=== PATIENT | female | born 1960 | race Two or more races ===

== ENCOUNTER 2024-10-28 00:21 | Inpatient (IN) | payer OTHER, MEDICAID ==
[~2024-10-28] VITALS: Ht 165.1 cm; Wt 74.0 kg
[2024-10-28 00:54] LABS: BASOPHILS % (AUTO) 1.3 % (0.0-2.0); EOSINOPHILS % (AUTO) 4.5 % (1.0-6.0); HEMATOCRIT 42.6 % (36-46); LYMPHOCYTES # (AUTO) 2.3 K/uL (1.0-4.8); MEAN CORPUSCULAR HEMOGLOBIN 26.8 pg (26.0-34.0); MEAN CORPUSCULAR HGB CONC 32.8 G/dL (31.0-37.0); MEAN CORPUSCULAR VOLUME 82 fL (80-100); MONOCYTES # (AUTO) 0.5 K/uL (0.1-1.0); MONOCYTES % (AUTO) 8.8 % (2.0-9.0); NEUTROPHILS # (AUTO) 2.9 K/uL (1.8-7.7); NEUTROPHILS % (AUTO) 47.4 % (40.0-70.0); PLATELET COUNT (AUTO) 205 K/uL (150-450); RED BLOOD CELL COUNT(AUTO) 5.21 MIL/uL (4.00-5.20); WHITE BLOOD COUNT (AUTO) 6.1 K/uL (4.5-11.0)
[2024-10-28] MEDS: DILTIAZEM HCL 5 MG/ML 5 ML VIAL IVP ONE ×2 (00:54→01:21)
[2024-10-28 01:06] LABS: ANION GAP 5 mmol/L (8-16); CALCIUM, TOTAL 9.1 mg/dL (8.8-10.5); CARBON DIOXIDE 32 mmol/L (22-29); CHLORIDE 105 mmol/L (98-107); CREATININE 0.71 mg/dL (0.60-1.30); GLOMERULAR FILTR. RATE CALC > 60 mL/min (>60); GLUCOSE,RANDOM 118 mg/dL (70-110); POTASSIUM 3.7 mmol/L (3.5-5.1); SODIUM SERUM 142 mmol/L (136-145); UREA NITROGEN, BLOOD 20 mg/dL (7-18)
[2024-10-28 01:08] LABS: APPEARANCE,URINE CLEAR (CLEAR); BILIRUBIN,URINE NEGATIVE (NEGATIVE); COLOR,URINE COLORLESS (YELLOW); GLUCOSE, URINE (UA) NEGATIVE (NEGATIVE); KETONES,URINE NEGATIVE (NEGATIVE); LEUKOCYTE ESTERASE ,URINE NEGATIVE (NEGATIVE); NITRATE,URINE NEGATIVE (NEGATIVE); OCCULT BLOOD,URINE NEGATIVE (NEGATIVE); PH,URINE 6.5 (5.0-8.0); PROTEIN,URINE NEGATIVE (NEGATIVE); SPECIFIC GRAVITIY, URINE 1.006 (1.003-1.030); UROBILINOGEN,URINE <=1.0 mg/dL (<=1.0)
[2024-10-28 01:09] LABS: PROTHROMBIN TIME 9.8 SEC (9.4-11.6)
[2024-10-28 01:10] LABS: ALBUMIN 3.5 g/dL (3.4-5.0); BILIRUBIN,DIRECT 0.1 mg/dL (0.00-0.20); BILIRUBIN,TOTAL 0.2 mg/dL (0.1-1.0); TOTAL PROTEIN, SERUM 7.4 g/dL (6.4-8.2); TROPONIN I-HIGH SENSITIVITY 18 ng/L (<51)
[2024-10-28] MEDS: DEXTROSE 5% IV PRN (01:22)
[2024-10-28] MEDS: WATER IV PRN (01:22)
[2024-10-28] MEDS: DILTIAZEM HCL IV PRN (01:22)
[2024-10-28] MEDS: METOPROLOL TARTRATE 5 MG/5 ML VIAL IVP ONE ×3 (03:08→07:16)
[2024-10-28 08:07] LABS: TROPONIN I-HIGH SENSITIVITY 34 ng/L (<51)
[2024-10-28] MEDS: DILTIAZEM HCL 60 MG SR CAPSULE PO SCH (08:49)
[2024-10-28] MEDS: ASPIRIN 81 MG DR TABLET PO SCH (09:26)
[2024-10-28 12:00] VITALS: BP 112/59; PULSE 54; RESP 14; TEMP 98.1; O2SAT 99
[2024-10-28 16:30] VITALS: BP 121/62; PULSE 65; RESP 16; TEMP 98.1; O2SAT 98
[2024-10-28] MEDS ORDERED: BISACODYL 10 MG RECTAL RECTAL SUPPOSITORY PR PRN (17:45)
[2024-10-28] MEDS ORDERED: ACETAMINOPHEN 325 MG TABLET PO PRN (17:45)
[2024-10-28] MEDS ORDERED: OxyCODONE HCL/ACETAMINOPHEN 5-325 MG TABLET PO PRN (17:45)
[2024-10-28] MEDS ORDERED: MORPHINE SULFATE 2 MG/ML SYRINGE IVP PRN (17:45)
[2024-10-28] MEDS ORDERED: ZOLPIDEM TARTRATE 5 MG TABLET PO PRN (17:45)
[2024-10-28] MEDS ORDERED: ONDANSETRON HCL 4 MG/2 ML VIAL IVP PRN (17:45)
[2024-10-28] MEDS ORDERED: ALBUTEROL SULFATE 2.5 MG/0.5 ML NEB SOLUTION NEB PRN (17:45)
[2024-10-28] MEDS ORDERED: IPRATROPIUM BROMIDE 0.5 MG/2.5 ML NEB SOLUTION NEB PRN (17:45)
[2024-10-28] MEDS ORDERED: MAGNESIUM HYDROXIDE SUSPENSION 30 ML UDCUP PO PRN (17:45)
[2024-10-28 19:31] VITALS: BP 116/53; PULSE 63; RESP 17; TEMP 97.9; O2SAT 98
[2024-10-29 00:25] VITALS: BP 109/57; PULSE 57; RESP 17; TEMP 98.4; O2SAT 99
[2024-10-29] MEDS: HEPARIN SODIUM,PORCINE 5,000 UNITS/ML VIAL SQ SCH (00:25)
[2024-10-29 06:00] VITALS: BP 121/57; PULSE 59; RESP 16; TEMP 98.1; O2SAT 99
[2024-10-29 06:48] LABS: BASOPHILS % (AUTO) 1.2 % (0.0-2.0); EOSINOPHILS % (AUTO) 3.5 % (1.0-6.0); HEMATOCRIT 41.9 % (36-46); HEMOGLOBIN 13.9 g/dL (12.0-16.0); LYMPHOCYTES # (AUTO) 2.1 K/uL (1.0-4.8); LYMPHOCYTES % (AUTO) 38.1 % (22.0-44.0); MEAN CORPUSCULAR HEMOGLOBIN 27.2 pg (26.0-34.0); MEAN CORPUSCULAR HGB CONC 33.2 G/dL (31.0-37.0); MEAN CORPUSCULAR VOLUME 82 fL (80-100); MONOCYTES # (AUTO) 0.5 K/uL (0.1-1.0); MONOCYTES % (AUTO) 9.3 % (2.0-9.0); NEUTROPHILS # (AUTO) 2.7 K/uL (1.8-7.7); NEUTROPHILS % (AUTO) 47.9 % (40.0-70.0); PLATELET COUNT (AUTO) 216 K/uL (150-450); RED BLOOD CELL COUNT(AUTO) 5.11 MIL/uL (4.00-5.20); RED CELL DISTRIBUTION WIDTH 15.3 % (11.5-14.5); WHITE BLOOD COUNT (AUTO) 5.6 K/uL (4.5-11.0)
[2024-10-29 07:01] LABS: ALANINE AMINOTRANSFERASE 17 U/L (12-78); ALBUMIN 3.2 g/dL (3.4-5.0); ALKALINE PHOSPHATASE 70 U/L (46-116); ANION GAP 5 mmol/L (8-16); ASPARTATE AMINOTRANSFERASE 11 U/L (15-37); BILIRUBIN,TOTAL 0.4 mg/dL (0.1-1.0); CALCIUM, TOTAL 8.9 mg/dL (8.8-10.5); CARBON DIOXIDE 29 mmol/L (22-29); CHLORIDE 105 mmol/L (98-107); GLOMERULAR FILTR. RATE CALC > 60 mL/min (>60); GLUCOSE,RANDOM 101 mg/dL (70-110); POTASSIUM 4.2 mmol/L (3.5-5.1); SODIUM SERUM 139 mmol/L (136-145); TOTAL PROTEIN, SERUM 6.9 g/dL (6.4-8.2); UREA NITROGEN, BLOOD 18 mg/dL (7-18)
[2024-10-29 07:14] LABS: TROPONIN I-HIGH SENSITIVITY 21 ng/L (<51)
[2024-10-29 09:00] VITALS: BP 133/76; PULSE 66; RESP 18; TEMP 97.9; O2SAT 99
[2024-10-29] MEDS: DOCUSATE SODIUM 100 MG/10 ML LIQUID UDCUP PO SCH (09:00)
[2024-10-29] MEDS: PANTOPRAZOLE SODIUM 40 MG/VIAL IVP SCH (09:03)
[2024-10-29 12:45] VITALS: BP 106/56; PULSE 60; RESP 19; TEMP 97.9; O2SAT 99
[2024-10-29 16:47] VITALS: BP 127/68; PULSE 63; RESP 16; TEMP 98.2; O2SAT 97
[2024-10-29] MEDS ORDERED: ASPI-1444 PO (18:35)
[2024-10-29] MEDS ORDERED: DILT60SR PO (18:35)
== END 2024-10-29 19:10 | disposition home or self-care (01) | DRG 310 ==
LOC: EMS 00:52 → EDH 06:16 → 5S 11:31
PROVIDERS: ADMIT Hospitalist; ATTEND Hospitalist
DX: I48.91 Unspecified atrial fibrillation (principal); R00.1 Bradycardia, unspecified
CPT/HCPCS: 71045; 80048; 80053; 80076; 81003; 83880; 84443; 84484; 85025; 85610; 85730; 93005; 93306; 96365; 96375; 96376; 99291; J1644; J2470; J3490; J7060; 36415-L1; 36415-TC